=== PATIENT | male | born 1950 | race Caucasian/White ===

== ENCOUNTER 2023-09-22 10:22 | Emergency (ER) | payer MEDICARE, SELFPAY ==
[2023-09-22 10:22] VITALS: BP 146/85; PULSE 87; RESP 18; TEMP 36.7; O2SAT 97
--- NOTE | 2023-09-22 10:24 | ED.GENADULT ---
HPI - General Adult General Chief complaint: Wound/Laceration Stated complaint: LEG LACERATION Time Seen by Provider: 09/22/23 10:23 History of Present Illness HPI narrative: Korina is a 73F with a PMH of hep C, previous hysterectomy that presented to the ED with a laceration on her right lower extremity after she cut it with a car door. No other injuries reported. Related Data Allergies Allergy/AdvReac Type Severity Reaction Status Date / Time No Known Allergies Allergy Verified 09/22/23 10:27 Review of Systems Review of Systems: All systems reviewed & are unremarkable except as noted in HPI and below Exam Const: General: cooperative, healthy appearing, comfortable, no acute distress, well developed, alert, awake and Physically active Orientation/consciousness: oriented to person, oriented to place and oriented to time HENMT: Head: normal to inspection, normocephalic and atraumatic Ears: hearing grossly normal bilaterally and external ears normal Face/Nose/Sinus: Normal external nose present Eyes: General: appearance normal, both eyes and all related structures Periorbital: periorbital findings normal Sclera: sclerae normal Pupils: Equal, round and reactive pupils present Neck: Neck: normal visual inspection Chest: Chest palpation & inspection: normal inspection of the chest Resp: Effort & Inspection: normal respiratory effort, able to speak in complete sentences and no respiratory distress Cardio: Jugular venous distension: no JVD Skin: General skin exam: normal color and no rashes or lesions noted Other: 8cm L shaped laceration on her right lower extremity. Neuro: General: oriented to person, oriented to place and oriented to time Cranial nerves: Yes Equal, round and reactive pupils present Extrem: General: normal to inspection Course Vital Signs Vital signs: Vital Signs Temperature 98.0 F 09/22/23 10:22 Pulse Rate 87 09/22/23 10:22 Respiratory Rate 18 09/22/23 10:22 Blood Pressure 146/85 H 09/22/23 10:22 Pulse Oximetry 97 09/22/23 10:22 Oxygen Delivery Room Air 09/22/23 10:22 Temperature 98.0 F 09/22/23 10:22 Pulse Rate 87 09/22/23 10:22 Respiratory Rate 18 09/22/23 10:22 Blood Pressure 146/85 H 09/22/23 10:22 Pulse Oximetry 97 09/22/23 10:22 Oxygen Delivery Room Air 09/22/23 10:22 Procedures Laceration Laceration 1: Date: 09/22/23 Time: 10:50 Site: other (right lower extremity) Side (If applicable): right Size (cm): 8 Description: flap Depth: simple, single layer Local Anesthetic: lidocaine 1% and with epi Amount of anesthesia used (mL): 2 ====== Skin Level ====== Skin layer closed with: nylon Size (cm): 3-0 Number of sutures: 12 Technique: simple, interrupted ====== Subcutaneous Layer ====== ====== Muscle Layer ====== ====== Tendon Layer ====== Medical Decision Making Vital Signs Vital Signs: Vital Signs Temperature 98.0 F 09/22/23 10:22 Pulse Rate 87 09/22/23 10:22 Respiratory Rate 18 09/22/23 10:22 Blood Pressure 146/85 H 09/22/23 10:22 Pulse Oximetry 97 09/22/23 10:22 Oxygen Delivery Room Air 09/22/23 10:22 Temperature 98.0 F 09/22/23 10:22 Pulse Rate 87 09/22/23 10:22 Respiratory Rate 18 09/22/23 10:22 Blood Pressure 146/85 H 09/22/23 10:22 Pulse Oximetry 97 09/22/23 10:22 Oxygen Delivery Room Air 09/22/23 10:22 Discharge Plan Discharge Clinical Impression: Laceration Patient Disposition: Home, Self-Care Condition: Stable Instructions: Care For Your Stitches (ED) Follow-up/Referrals: UNKNOWN,DOCTOR [Primary Care Provider] -
[2023-09-22] MEDS: LIDO 1%/EPINEPHRINE 1:100,000 20 ML VIAL INFILTRATE (10:31)
[2023-09-22] MEDS: TETANUS,DIPHTHERIA,AC PERTUSSIS ADULT 0.5 ML (ADACEL) IM (10:54)
== END 2023-09-22 10:53 | disposition home or self-care (01) ==
LOC: CHSED 11:01
PROVIDERS: Emergency Provider Family Medicine
DX: S81.811A Laceration without foreign body, right lower leg, initial encounter (principal); W45.8XXA Other foreign body or object entering through skin, initial encounter; Z23 Encounter for immunization
CPT/HCPCS: 12004; 90471; 90715; 99282